=== PATIENT | female | born 2005 | race Caucasian/White ===

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

== ENCOUNTER 2025-06-14 11:50 | Emergency (ER) | payer SELFPAY ==
[~2025-06-14] VITALS: Ht 165.1 cm; Wt 105.7 kg
[~2025-06-14 11:50] MED LIST: ACET-2247 PO; AMOX-429 PO
--- NOTE | 2025-06-14 12:01 | ERN ---
ED Note History of Present Illness Stated Complaint: ABSCESS Chief Complaint: Abscess Time Seen by MD: 11:56 Dictation: PATIENT IS A 20-YEAR-OLD FEMALE COMING IN WITH A RIGHT AXILLARY ABSCESS SHE HAS HAD FOR ONE WEEK. SHE DOES STATE SHE SHAVES. HAS NOT BEEN ABLE TO SHAVE HER SEVERAL DAYS DUE TO THE PAIN AND SWELLING WITH A ERYTHEMA. NO PRIMARY CARE DOCTOR NO FEVER NO CHILLS. DENIES BEING A DIABETIC Allergies: Coded Allergies: No Known Drug Allergies (Unverified Allergy, Unknown, 01/20/21) Home Meds Active Scripts Acetaminophen (Tylenol) 325 Mg Tablet, 650 MG PO Q4H, #60 TAB Prov:JANICE LORD 01/20/21 Amoxicillin/Potassium Clav (Augmentin 875-125 Tablet) 1 Each Tablet, 1 EACH PO BID for 10 Days, #20 TAB Prov:JANICE LROD 01/20/21 Past Medical History Past Medical History: No Pertinent History Surgical History: None Family History: Negative Social History: Negative History: Not Applicable RN Note Reviewed/Agreed w/PFSH: Yes Review of System Dictation CONSTITUTIONAL: NEGATIVE EXCEPT FOR HPI HEAD/FACE: NEGATIVE EXCEPT FOR HPI EENT: NEGATIVE EXCEPT FOR HPI RESPIRATORY: NEGATIVE EXCEPT FOR HPI GASTROINTESTINAL/ABDOMINAL: NEGATIVE EXCEPT FOR HPI GENITOURINARY: NEGATIVE EXCEPT FOR HPI MUSCULOSKELETAL: NEGATIVE EXCEPT FOR HPI INTEGUMENTARY: NEGATIVE EXCEPT FOR HPI RIGHT AXILLARY ABSCESS NEUROLOGICAL/PSYCH: NEGATIVE EXCEPT FOR HPI HEMATOLOGIC/LYMPHATIC: NEGATIVE EXCEPT FOR HPI ALL SYSTEMS NEGATIVE, EXCEPT NOTED ABOVE. 13 POINT REVIEW OF SYSTEMS ASSESSED AND ALL NEGATIVE EXCEPT FOR ABOVE. Initial Vital Sign VS Vital Signs Date Time Temp Pulse Resp B/P (MAP) Pulse Ox O2 Delivery O2 Flow Rate FiO2 06/14/25 11:53 98.8 94 20 135/87 97 Room Air 0 06/14/25 12:47 21 Physical Exam Dictation VITAL SIGNS REVIEWED GENERAL APPEARANCE: ALERT, ORIENTED X 3, MILD ACUTE DISTRESS, WELL DEVELOPED, NOURISHED. HEAD AND FACE: NON-TRAUMATIC. EYES: PERRL, PINK CONJUNCTIVAS, EYELID NO TRAUMA, ANTERIOR CHAMBER WITH ARCUS SENILIS. EARS: PINNAS INTACT AND NO SIGNS OF TRAUMA OR ERYTHEMA EAR CANALS CLEAR AND NO DISCHARGE TM NO ERYTHEMA NOSE: NO DISCHARGE, NO BLEEDING. OROPHARYNX: MOUTH NORMAL, TONGUE PINK, PHARYNX CLEAR,NO ERYTHEMA, TONSILS NO EXUDATES, NO ABSCESSES NOTED, MUCOUS MEMBRANE MOIST NECK: SUPPLE, NON-TENDER, NO THYROMEGALY, NO MASSES, NO JVD, NO BRUITS BREAST:DEFERRED CHEST:NO TENDERNESS, NO CREPITUS, NO PARADOXICAL MOVEMENT, NO RETRACTIONS LUNGS:CLEAR, WELL-VENTILATED, SYMMETRIC, NO RALES, NO WHEEZING, NO RHONCHI, NO STRIDOR, GOOD BREATH SOUNDS BILATERALLY HEART: REGULAR RATE, REGULAR RHYTHM, NO MURMUR, NO GALLOPS VASCULAR: NO PERIPHERAL EDEMA, ABDOMEN: SOFT, POSITIVE BOWEL SOUNDS, NONDISTENDED, NO GUARDING, NONTENDER, NO REBOUND, NO MASSES NO HEPATOMEGALY, NO SPLENOMEGALY, NO ALONZO'S SIGN, NO HERNIAS. RECTAL: DEFERRED GENITAL: DEFERRED NEUROLOGICAL: NORMAL SPEECH, MOTOR FUNCTION INTACT, SENSORY FUNCTION INTACT MUSCULOSKELETAL: NECK NONTENDER, FULL RANGE OF MOTION, BACK NONTENDER, FULL RANGE OF MOTION, EXTREMITIES RIGHT AXILLARY ERYTHEMA TENDERNESS. LESION APPROXIMATE 3 X 2 CM. FLUCTUANT LYMPHATIC: DEFERRED Results (Laboratory/Radiology) Labs Reviewed?: Yes ED Course ED Course Orders Procedure Category Date Status Time Cephalexin 500 Mg PHA 06/14/25 Complete Capsule (Keflex 500 Mg 12:00 Lidocaine Hcl 1% 20ml PHA 06/14/25 Complete Vial (Lidocaine Hc 12:00 Aerobic Culture JIMMY 06/14/25 Logged 11:58 Acetaminophen 500mg PHA 06/14/25 Complete Tab (Tylenol 500mg T 12:00 Current Medications Medications (Trade) Dose Ordered Sig/Antonio Route PRN Reason Start Time Stop Time Status Last Admin Dose Admin Acetaminophen (TYLenol 500MG TAB) 1,000 mg ONCE ONCE PO 06/14/25 12:00 06/14/25 12:03 DC 06/14/25 12:42 Cephalexin (Keflex 500 MG CAPS) 1,000 mg ONCE ONCE PO 06/14/25 12:00 06/14/25 12:04 DC 06/14/25 12:41 Lidocaine HCl (Lidocaine HCl 1% 20ml Vial) 10 ml ONCE ONCE INJ 06/14/25 12:00 06/14/25 12:04 DC 06/14/25 12:41 Vital Signs Date Time Temp Pulse Resp B/P (MAP) Pulse Ox O2 Delivery O2 Flow Rate FiO2 06/14/25 12:47 98.8 94 20 135/87 97 Room Air* 0 21 06/14/25 11:53 98.8 94 20 135/87 97 Room Air 0 Medical Decision Making [facility] 1310/MEDICAL DECISION-MAKING BASED ON I AND D OF RIGHT AXILLARY ABSCESS CULTURE SENT TO LAB PATIENT INITIATED WITH KEFLEX WOUND CARE INSTRUCTIONS GIVEN PATIENT TOLERATED WELL Procedure Procedure Dictation: 1310/PROCEDURE EXPLAINED TO PATIENT SHE AGREED TO PROCEED [employer] 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 BLADE WAS USED TO MAKE A 3 CM LACERATION TO ABSCESS LOCULATIONS WERE EXPLORED APPROXIMATE 15 CC OF PURULENT DRAINAGE RETURNED AND CULTURE SENT TO LAB NO PACKING AT THIS TIME PATIENT TOLERATED WELL DX & DISP Disposition: Discharge Departure Impression: Primary Impression: Abscess of right axilla Condition: Stable Scripts Ibuprofen (Ibuprofen 800 mg Tab) 800 Mg Tab 800 MG PO Q8H PRN for fever or pain, #30 TAB 0 Refills Prov: AZALIA YOON 06/14/25 Cephalexin (Cephalexin) 500 Mg Tablet 1 TAB PO TID for 10 Days, #30 TAB 0 Refills Prov: AZALIA YOON 06/14/25 Additional Instructions: FOLLOW-UP WITH PRIMARY CARE PROVIDER IN 1 TO 2 DAYS. TAKE MEDICATIONS DIRECTED HERE IN THE EMERGENCY ROOM. OKAY TO CONTINUE HOME MEDICATIONS UNLESS OTHERWISE DISCUSSED DURING YOUR VISIT IN THE EMERGENCY ROOM TODAY. RETURN TO YOUR NEAREST EMERGENCY ROOM IF SYMPTOMS WORSEN OR IF THERE IS NO IMPROVEMENT. CALL 911 IF YOU NEED IMMEDIATE ASSISTANCE. TAKE TYLENOL OR MOTRIN [id number] NEEDED AND IF NO CONTRAINDICATIONS ARE PRESENT. INCREASE ORAL HYDRATION. A WOUND CULTURE OR URINE CULTURE WAS ORDERED HERE IN THE EMERGENCY ROOM DEPARTMENT PLEASE FOLLOW-UP WITH PRIMARY CARE PROVIDER AND ADVISE THEM TO GET REPEAT PORTS FROM OUR FACILITY. IF YOU HAD ANY INDRA WRAP/SPLINTS THAT WERE APPLIED HERE, PLEASE DO NOT REMOVE THEM UNTIL YOU SEE YOUR PRIMARY CARE OR SPECIALTY. OKAY TO SHOWER AND WASH AREA WITH SOAP AND WATER. REAPPLY DRESSING. TAKE A NTIBIOTICS DIRECTED UNTIL GONE. FOLLOW UP WITH THE DOCTOR ON THE LIST PROVIDED YOU IN THE NEXT 1-2 DAYS FOR MANAGEMENT Referrals: SELF,REFERRAL (PCP) Time of Disposition: 13:12 I have reviewed the case, and I agree with, Diagnosis and Plan AZALIA YOON Jun 14, 2025 12:01
[2025-06-14] MEDS: LIDOCAINE HCL 1% 20 ML VIAL INJ ONE (12:41)
[2025-06-14 12:47] VITALS: BP 135/87; PULSE 94; RESP 20; TEMP 98.8; O2SAT 97
[2025-06-14] MEDS ORDERED: IBUP-2077 PO (13:12)
[2025-06-14] MEDS ORDERED: CEPH500T PO (13:12)
--- NOTE | 2025-06-14 13:31 | NUR ---
ABSCESS DRAINED, PT TOLERATED WELL
== END 2025-06-14 13:31 | disposition home or self-care (01) ==
LOC: EDH 11:50
DX: L02.411 Cutaneous abscess of right axilla (principal)
CPT/HCPCS: 99283; 10060; 87070; 87086; 87186; J2003